=== PATIENT | female | born 1995 | race Caucasian/White ===

== ENCOUNTER 2016-12-17 00:59 | Emergency (ER) | payer BC, MEDICAID ==
[~2016-12-17] VITALS: Ht 165.1 cm; Wt 100.0 kg
[~2016-12-17 00:59] MED LIST: VENL-67 PO
[2016-12-17] MEDS ORDERED: LORazepam 2 MG TABLET PO ONE (02:30)
[2016-12-17 02:41] VITALS: BP 132/79
== END 2016-12-17 02:58 | disposition home or self-care (01) ==
LOC: EMS 01:00
DX: F41.9 Anxiety disorder, unspecified (principal); F32.9 Major depressive disorder, single episode, unspecified; R51 Headache; J45.909 Unspecified asthma, uncomplicated; F12.90 Cannabis use, unspecified, uncomplicated
CPT/HCPCS: 99282; 99284

== ENCOUNTER 2017-05-27 03:24 | Emergency (ER) | payer BC, MEDICAID ==
[~2017-05-27] VITALS: Ht 167.6 cm; Wt 102.3 kg
[2017-05-27] MEDS ORDERED: ALPR0.5T8 PO (03:35)
[2017-05-27] MEDS ORDERED: HYDROCODONE/ACETAMINOPHEN 5-325 MG TABLET PO ONE (04:15)
[2017-05-27 05:11] VITALS: BP 129/69
== END 2017-05-27 06:06 | disposition home or self-care (01) ==
LOC: EMS 03:26
DX: S93.401A Sprain of unspecified ligament of right ankle, initial encounter (principal); J45.909 Unspecified asthma, uncomplicated; F12.90 Cannabis use, unspecified, uncomplicated; W18.40XA Slipping, tripping and stumbling without falling, unspecified, initial encounter; Y93.89 Activity, other specified; Y92.511 Restaurant or cafe as the place of occurrence of the external cause; Y99.8 Other external cause status
CPT/HCPCS: 29515; 99284

== ENCOUNTER 2017-06-01 13:17 | Emergency (ER) | payer BC, MEDICAID ==
[~2017-06-01] VITALS: Ht 167.6 cm; Wt 106.8 kg
[~2017-06-01 13:17] MED LIST changes: +ALPR0.5T8 PO; -VENL-67 PO
[2017-06-01] MEDS ORDERED: HydrOXYzine HCL 25 MG TABLET PO ONE (14:15)
[2017-06-01 16:12] VITALS: BP 139/92
== END 2017-06-01 18:07 | disposition left against medical advice (07) ==
LOC: EMS 13:19
DX: F41.9 Anxiety disorder, unspecified (principal); R00.2 Palpitations; J45.909 Unspecified asthma, uncomplicated; F17.210 Nicotine dependence, cigarettes, uncomplicated; F12.90 Cannabis use, unspecified, uncomplicated; Z76.0 Encounter for issue of repeat prescription
CPT/HCPCS: 81025; 93005; 99284; 99406